=== PATIENT | female | born 1955 | race Caucasian/White ===

== ENCOUNTER 2018-06-15 17:33 | Observation (INO) ==
[2018-06-15 19:22] LABS: Baso # (Auto) 0.1 th/mm3 (0.0-0.2); Baso % (Auto) 0.7 % (0.0-2.0); Eos # (Auto) 0.2 th/mm3 (0.0-0.4); Eos % (Auto) 2.1 % (0.0-4.0); Hematocrit 42.2 % (35.0-46.0); Hemoglobin 14.8 gm/dL (11.6-15.3); Lymph # (Auto) 2.8 th/mm3 (1.0-4.8); Lymph % (Auto) 33.1 % (9.0-44.0); Mean Corpuscular HGB Conc 35.1 % (32.0-36.0); Mean Corpuscular Hemoglobin 31.9 pg (27.0-34.0); Mean Platelet Volume 8.1 fL (7.0-11.0); Mono # (Auto) 0.8 th/mm3 (0.0-0.9); Neut # (Auto) 4.7 th/mm3 (1.8-7.7); Neut % (Auto) 55.1 % (16.0-70.0); Platelet Count 310 th/mm3 (150-450); Red Blood Count 4.64 mil/mm3 (4.00-5.30); Red Cell Distribution Width 12.8 % (11.6-17.2); White Blood Count 8.5 th/mm3 (4.0-11.0)
--- NOTE | 2018-06-15 19:34 | ED ---
HPI General Chief Complaint: Neuro Symptoms/Deficit Stated Complaint: R arm and hand numb Time Seen by Provider: 06/15/18 18:10 Source: patient Mode of arrival: ambulatory Limitations: no limitations History of Present Illness HPI Narrative: since or any history of TIA/stroke previously. The patient takes a statin for hyperlipidemia however denies past medical history otherwise.The patient 62 years old and arrives to the ER due to numbness and weakness in the right hand which lasted about 10 seconds or so. Symptoms started spontaneously at rest. Patient reports no neuro deficits since. She reports a history of transient global amnesia several months prior and at that time complete workup was unremarkable patient reports multiple scans however is not sure for additional details. She reports a past history of hyperlipidemia and takes pravastatin for it however takes no other medication. She reports quite a bit of personal stress and anxiety related to politics over the past few weeks. Timing confirmed by: spouse Location: Reports right arm History of same: No Severity: mild Quality: Reports weak Relieving factors: none Context: Reports sudden onset On Anticoagulants: No Associated symptoms: Reports weakness Treatments Prior to Arrival: Reports none Related Data Home Medications Medication Instructions Recorded Confirmed pravastatin 20 mg PO DAILY 06/15/18 06/15/18 Allergies Allergy/AdvReac Type Severity Reaction Status Date / Time No Known Allergies Allergy Verified 06/15/18 18:25 Review of Systems ROS: all other systems reviewed are negative [facility] Medical History Medical History High cholesterol (Acute) Transient global amnesia (Acute) Social History Social History Substance History: No History of Abuse Second Hand Smoke Exposure: No Smoking Status: Never smoker How Often Do You Have a Drink Containing Alcohol: 2 to 3 times a week Recent Travel in [facility] within the Last 8 Weeks: No Recent Out of Country Travel within the Last 8 Weeks: No Exam Narrative Exam Narrative: GENERAL: 62-year-old female well-nourished well-developed no acute distress SKIN: Focused skin assessment warm/dry. HEAD: Atraumatic. Normocephalic. EYES: Pupils equal and round. No scleral icterus. No injection or drainage. ENT: No nasal bleeding or discharge. Mucous membranes pink and moist. NECK: Trachea midline. No JVD. CARDIOVASCULAR: Regular rate and rhythm. No murmur appreciated. RESPIRATORY: No accessory muscle use. Clear to auscultation. Breath sounds equal bilaterally. GASTROINTESTINAL: Abdomen soft, non-tender, nondistended. Hepatic and splenic margins not palpable. MUSCULOSKELETAL: No obvious deformities. No clubbing. No cyanosis. No edema. NEUROLOGICAL: Cranial nerves III through XII are normal. Motor function is normal x5. Speech memory mentation is normal. PSYCHIATRIC: Appropriate mood and affect; insight and judgment normal. Course Initial Documented Vital Signs Temperature 98.2 F 06/15/18 17:57 Pulse Rate 105 H 06/15/18 17:57 Respiratory Rate 20 06/15/18 17:57 Blood Pressure 156/77 H 06/15/18 17:57 Pulse Oximetry 96 06/15/18 17:57 Last Documented Vital Signs Temperature 98.2 F 06/15/18 17:57 Pulse Rate 94 H 06/15/18 18:04 Respiratory Rate 18 06/15/18 18:04 Blood Pressure 185/94 H 06/15/18 18:04 Pulse Oximetry 94 L 06/15/18 18:04 Medical Decision Making MDM Narrative Medical decision making narrative: The patient 62 years old and arrives with a history of weakness in the right hand which lasted about 10 seconds or so. Workup reveals no abnormality with the blood work and a head CT is normal as well. Urinalysis is consistent with a UTI. Bactrim ordered. Patient has a history of transient global amnesia however aside from hyperlipidemia no other significant past medical history. This case was discussed with hospitalist Dr. De La Paz who recommends TIA protocol admission. Pt amenable with plan. Medical Screen Exam Complete: Yes Emergency Medical Condition: Yes Differential Diagnosis Differential Diagnosis: TIA, stroke, electrolyte imbalance, paresthesia, radiculopathy Lab Data Lab results reviewed: Yes I reviewed the patient's lab results. Result diagrams: 06/15/18 19:05 06/15/18 19:05 Lab Results 06/15/18 06/15/18 06/15/18 Range/Units 19:05 19:05 19:10 WBC 8.5 (4.0-11.0) th/mm3 RBC 4.64 (4.00-5.30) mil/mm3 Hgb 14.8 (11.6-15.3) gm/dL Hct 42.2 (35.0-46.0) % MCV 91.0 (80.0-100.0) fL MCH 31.9 (27.0-34.0) pg MCHC 35.1 (32.0-36.0) % RDW 12.8 (11.6-17.2) % Plt Count 310 (150-450) th/mm3 MPV 8.1 (7.0-11.0) fL Neut % (Auto) 55.1 (16.0-70.0) % Lymph % (Auto) 33.1 (9.0-44.0) % Wayne % (Auto) 9.0 H (0.0-8.0) % Eos % (Auto) 2.1 (0.0-4.0) % Baso % (Auto) 0.7 (0.0-2.0) % Neut # (Auto) 4.7 (1.8-7.7) th/mm3 Lymph # (Auto) 2.8 (1.0-4.8) th/mm3 [place] # (Auto) 0.8 (0.0-0.9) th/mm3 Eos # (Auto) 0.2 (0.0-0.4) th/mm3 Baso # (Auto) 0.1 (0.0-0.2) th/mm3 WBC Differential . Differential Comment Auto diff final Sodium 139 (136-145) meq/L Potassium 4.9 (3.5-5.1) meq/L Chloride 105 (98-107) meq/L Carbon Dioxide 26.6 (21.0-32.0) meq/L Anion Gap 7 (5-15) meq/L BUN 16 (7-18) mg/dL Creatinine 0.96 (0.50-1.00) mg/dL Estimated GFR 59 L (>89) mL/min Random Glucose 104 (74-106) mg/dL Calcium 9.4 (8.5-10.1) mg/dL Total Bilirubin 0.3 (0.2-1.0) mg/dL AST 37 (15-37) U/L ALT 27 (10-53) U/L Alkaline Phosphatase 94 (45-117) U/L Total Protein 8.0 (6.4-8.2) g/dL Albumin 3.7 (3.4-5.0) g/dL Urine Color Yellow (Yellw/Straw) Urine Clarity Cloudy H (Clear) Urine pH 5.0 (5.0-8.5) Ur Specific [place] 1.021 (1.002-1.035) Urine Protein Negative (Neg-Trace) mg/dL Urine Glucose (UA) Negative (Negative) mg/dL Urine Ketones Negative (Negative) mg/dL Urine Occult Blood Small H (Negative) Urine Nitrate Negative (Negative) Urine Bilirubin Negative (Negative) Urine Urobilinogen Less than 2 (Less than 2) mg/dL Ur Leukocyte Esterase Moderate H (Negative) Urine RBC 1 (0-3) /hpf Urine WBC 26 H (0-5) /hpf Ur Squamous Epith Cells 11 (0-5) /hpf Urine Bacteria Rare H (None) /hpf Urine Mucus Few H (Occasional) /lpf Micro UA Comment Culture indicated Ur Microscopic Review Not Reportable Urine Culture Comments Culture indicated Imaging Data Radiologist's impression: Head CT 06/15/18 19:06 CONCLUSION: Negative noncontrast head CT. . Discharge Plan Discharge Disposition Patient Disposition: 30 Still Patient Physicians Team ED Provider: Adonis Diallo Rxs /Orders / Referrals /Forms Prescriptions: No Action pravastatin 20 mg Tablet 20 mg PO DAILY RF: 0 Status ED Status: With Doctor
[2018-06-15 19:35] LABS: Bacteria,Urine Rare /hpf; Bilirubin,Urine Negative (Negative); Clarity,Urine Cloudy (Clear); Color,Urine Yellow (Yellw/Straw); Glucose,Urine (UA) Negative (Negative); Leukocyte Esterase,Urine Moderate (Negative); Mucus,Urine Few /lpf (Occasional); Nitrite,Urine Negative (Negative); Specific Gravity,Urine 1.021 (1.002-1.035); Squamous Epithelial Cell,Urine 11 /hpf (0-5)
--- NOTE | 2018-06-15 19:35 | CT ---
EXAM DATE: 06/15/2018 7:10 PM EDT AGE/SEX: 62 years / Female INDICATIONS: Numbness and tingling to right hand. CLINICAL DATA: This is the patient's initial encounter. Patient reports that signs and symptoms have been present for 1 day and indicates a pain score of 0/10. MEDICAL/SURGICAL HISTORY: . Transient global amnesia. None. RADIATION DOSE: 33.89 CTDI (mGy) COMPARISON: No prior exams available for comparison. TECHNIQUE: CT of the head without contrast. Using automated exposure control and adjustment of the mA and/or kV according to patient size, radiation dose was kept as low as reasonably achievable to ob tain optimal diagnostic quality images. DICOM format image data is available electronically for revi ew and comparison. FINDINGS: Cerebrum: The ventricles are normal for age. No evidence of midline shift, mass lesion, hemorrhage or acute infarction. No extraaxial fluid collections are seen. Posterior Fossa: The cerebellum and brainstem are intact. The 4th ventricle is midline. The cerebe llopontine angle is unremarkable. Extracranial: The visualized portion of the orbits is intact. Skull: The calvaria is intact. No evidence of skull fracture. CONCLUSION: Negative noncontrast head CT. . Electronically signed by: Prashanth Murhpy MD 06/15/2018 7:34 PM EDT
[2018-06-15 19:44] LABS: Alanine Aminotransferase 27 U/L (10-53)
[2018-06-15 19:47] LABS: Alkaline Phosphatase 94 U/L (45-117)
[2018-06-15 20:01] LABS: Albumin 3.7 g/dL (3.4-5.0); Anion Gap 7 meq/L (5-15); Aspartate Aminotransferase 37 U/L (15-37); Blood Urea Nitrogen 16 mg/dL (7-18); Calcium 9.4 mg/dL (8.5-10.1); Carbon Dioxide 26.6 meq/L (21.0-32.0); Chloride 105 meq/L (98-107); Glomerular Filtration Rate 59 mL/min (>89); Glucose,Random 104 mg/dL (74-106); Potassium 4.9 meq/L (3.5-5.1); Sodium 139 meq/L (136-145)
[2018-06-15] MEDS ORDERED: Aspirin 325 MG Tablet PO ONE (20:12)
[2018-06-15] MEDS ORDERED: Bisacodyl 10 MG Supp RECTAL PRN (20:30)
[2018-06-15] MEDS ORDERED: Acetaminophen 325 MG Tablet PO PRN (20:30)
--- NOTE | 2018-06-15 20:32 | P.HPIM ---
History of Present Illness History of Present Illness: This is a 62-year-old female with a PMH of Transient Global Amnesia who presented to ER with complaints of RUE numbness/tingling starting at approx 12: 30pm this afternoon. States symptoms lasted 10-20 seconds then resolved spontaneously, had transient right hand weakness at that time, however now resolved. No slurred speech, lid lag, facial droop or lower extremity involvement. Denies h/o similar symptoms. Reports previous episode of TGA in November 2017 while on an airplane, states she had extensive eval w/ Neurologist, including CT/MRI and EEG w/ normal results. No other complaints. On arrival, BP 156/77, HR 105, O2 sat 96% on RA, Afebrile. CBC unremarkable. Chemistry unremarkable. UA positive for UTI. CT Head negative. States she takes ASA 81mg daily and Pravastatin 20mg daily. - Diagnosis (1) TIA (transient ischemic attack) (2) UTI (urinary tract infection) (3) HTN (hypertension) Review of Systems PAST FAMILY HISTORY: Reviewed. No h/o DM or CAD All other systems reviewed negative except as stated in HPI PMFSH - History History Provided By: Patient - Medical History Medical History: Medical History (Last Updated 06/15/18 @ 18:18 by Chrissy Hogue) High cholesterol Transient global amnesia - Tobacco History Second Hand Smoke Exposure: No Smoking Status: Never smoker - Alcohol History How Often Do You Have a Drink Containing Alcohol: 2 to 3 times a week - Substance Use History Substance History: No History of Abuse - Travel History Recent Travel in the [facility] Within the Last 8 Weeks: No Recent Travel Out of the Country Within the Last 8 Weeks: No - Immunization History Tetanus Immunization: Unsure Medications and Allergies Active Medications: Active Medications Sodium Chloride (Ns Flush) 2 ml IV.FLUSH PRN PRN PRN Reason: FLUSH AFTER USING IV ACCESS Allergies Allergy/AdvReac Type Severity Reaction Status Date / Time No Known Allergies Allergy Verified 06/15/18 18:25 Home Medications Medication Instructions Recorded Confirmed Type pravastatin 20 mg PO DAILY 06/15/18 06/15/18 History Exam Vital signs: Vital Signs 06/15/18 17:57 06/15/18 18:04 Temperature 98.2 F Pulse Rate 105 H 94 H Respiratory Rate 20 18 Blood Pressure 156/77 H 185/94 H Pulse Oximetry 96 94 L Intake & Output 10/12/18 10/12/18 10/13/18 06:59 18:59 06:59 Weight 73.936 kg Narrative: PE: GENERAL: Pleasant middle-aged white female in no acute distress. SKIN: Focused skin assessment warm and dry. HEENT: PERRLA, EOMI. No scleral icterus or conjunctival pallor. No lid lag or facial droop. CARDIOVASCULAR: Regular rate and rhythm. No obvious murmurs to auscultation. No chest tenderness to palpation. RESPIRATORY: No obvious rhonchi or wheezing. Clear to auscultation. Breath sounds equal bilaterally. GASTROINTESTINAL: Abdomen soft, non-tender, nondistended. BS normal. MUSCULOSKELETAL: Extremities without clubbing, cyanosis, or edema. No obvious deformities. NEUROLOGICAL: Awake, alert and oriented x4. No focal neurologic deficits. Moving both upper and lower extremities spontaneously. PSYCHIATRIC: Appropriate mood and affect. Insight and judgment normal. Results - Labs CBC & Chem 7: 06/15/18 19:05 06/15/18 19:05 Labs: Short CBC 06/15/18 Range/Units 19:05 WBC 8.5 (4.0-11.0) th/mm3 Hgb 14.8 (11.6-15.3) gm/dL Hct 42.2 (35.0-46.0) % Plt Count 310 (150-450) th/mm3 BMP 06/15/18 19:05 Sodium 139 Potassium 4.9 Chloride 105 Carbon Dioxide 26.6 BUN 16 Creatinine 0.96 Calcium 9.4 Liver Function 06/15/18 Range/Units 19:05 Total Bilirubin 0.3 (0.2-1.0) mg/dL AST 37 (15-37) U/L ALT 27 (10-53) U/L Alkaline Phosphatase 94 (45-117) U/L Albumin 3.7 (3.4-5.0) g/dL Urine 06/15/18 Range/Units 19:10 Urine Color Yellow (Yellw/Straw) Urine Clarity Cloudy H (Clear) Urine pH 5.0 (5.0-8.5) Ur Specific [place] 1.021 (1.002-1.035) Urine Protein Negative (Neg-Trace) mg/dL Urine Glucose (UA) Negative (Negative) mg/dL - Imaging Impressions Head CT 06/15/18 19:06 CONCLUSION: Negative noncontrast head CT. . Caprini VTE Risk Assessment Caprini VTE Risk Assessment: No/Low Risk (score <= 1) Caprini Risk Assessment Model: Point Value = 1 Point Value = 2 Point Value = 3 Point Value = 5 Age 41-60 Minor surgery BMI > 25 kg/m2 Swollen legs Varicose veins or History of unexplained or recurrent spontaneous Oral contraceptives or hormone replacement Sepsis (< 1 month) Serious lung disease, including pneumonia (< 1 month) Abnormal pulmonary function Acute myocardial infarction Congestive heart failure (< 1 month) History of inflammatory bowel disease Medical patient at bed rest Age 61-74 Arthroscopic surgery Major open surgery (> 45 min) Laparoscopic surgery (> 45 min) Malignancy Confined to bed (> 72 hours) Immobilizing plaster cast Central venous access Age >= 75 History of VTE Family history of VTE Factor V Leiden Prothrombin [id number] Lupus anticoagulant Anticardiolipin antibodies Elevated serum homocysteine Heparin-induced thrombocytopenia Other congenital or acquired thrombophilia Stroke (< 1 month) Elective arthroplasty Hip, pelvis, or leg fracture Acute spinal cord injury (< 1 month) Prophylaxis Regimen: Total Risk Factor Score Risk Level Prophylaxis Regimen 0-1 Low Early ambulation 2 Moderate Order ONE of the following: *Sequential Compression Device (SCD) *Heparin 5000 units SQ BID 3-4 Higher Order ONE of the following medications: *Heparin 5000 units SQ TID *Enoxaparin/Lovenox 40 mg SQ daily (WT < 150 kg, CrCl > 30 mL/min) *Enoxaparin/Lovenox 30 mg SQ daily (WT < 150 kg, CrCl > 10-29 mL/min) *Enoxaparin/Lovenox 30 mg SQ BID (WT < 150 kg, CrCl > 30 mL/min) AND/OR *Sequential Compression Device (SCD) 5 or more Highest Order ONE of the following medications: *Heparin 5000 units SQ TID (Preferred with Epidurals) *Enoxaparin/Lovenox 40 mg SQ daily (WT < 150 kg, CrCl > 30 mL/min) *Enoxaparin/Lovenox 30 mg SQ daily (WT < 150 kg, CrCl > 10-29 mL/min) *Enoxaparin/Lovenox 30 mg SQ BID (WT < 150 kg, CrCl > 30 mL/min) AND *Sequential Compression Device (SCD) Assessment and Plan - Assessment (1) TIA (transient ischemic attack) Code(s): G45.9 - Transient cerebral ischemic attack, unspecified Status: Acute (2) UTI (urinary tract infection) Code(s): N39.0 - Urinary tract infection, site not specified Status: Acute (3) HTN (hypertension) Code(s): I10 - Essential (primary) hypertension Status: Acute - Plan A/P: 1. TIA: episode of RUE numbness/tingling lasting approx 10-20 seconds, spontaneous resolution, no residual symptoms. CT Head w/ no acute findings. On ASA 81mg and Pravastatin daily, will increase ASA to 325mg. Admit for Observation, Neuro Checks. Check MRI to eval for underlying ischemia. Check Echo to eval for possible valvular abnormality/thrombosis. Consult Neurology for further evaluation. 2. UTI: U/a w/ UTI, s/p Bactrim in ER, will continue w/ IV Abx, follow up cultures, monitor I/O. 3. HTN: Uncontrolled. BP 180's while in ER, not on home medications, will allow for permissive hypertension at this time, antihypertensives as needed for BP >220. 4. DVT Prophylaxis: SCD/Teds 5. Social work for d/c planning as needed 6. Case discussed w/ ER physician at length, labs/records/imaging reviewed by me.
--- NOTE | 2018-06-15 21:29 | MR ---
EXAM DATE: 06/15/2018 8:42 PM EDT AGE/SEX: 62 years / Female INDICATIONS: TIA. Right sided weakness for one day. CLINICAL DATA: This is the patient's initial encounter. Patient reports that signs and symptoms have been present for 1 day and indicates a pain score of 4/10. MEDICAL/SURGICAL HISTORY: Hypercholesterolemia. Appendectomy. section. COMPARISON: [facility] [place], CT HEAD W/O CONTRAST, 06/15/2018. . TECHNIQUE: Multiplanar, multisequence examination of the brain was performed without contrast. FINDINGS: Cerebrum: The ventricles are normal for age. No evidence of midline shift, mass lesion, hemorrhage or acute infarction. No extraaxial fluid collections are seen. The pituitary gland and suprasellar cistern are normal in configuration. White Matter: There are multiple small foci of increased signal seen throughout the cerebral white m atter on the FLAIR images. Posterior Fossa: The cerebellum and brainstem are intact. The 4th ventricle is midline. The cerebel lopontine angle is unremarkable. The cerebellar tonsils are normal in position. Diffusion Imaging: No focal areas of restricted diffusion are seen. No evidence of acute infarction . Extracranial: The visualized portions of the orbits and paranasal sinuses are unremarkable. CONCLUSION: 1. No acute abnormality seen. 2. Multiple small foci of signal abnormality within the cerebral white matter. These are nonspecific . They could be from small vessel ischemic change versus other demyelinating conditions. Electronically signed by: Prashanth Murphy MD 06/15/2018 9:28 PM EDT
[2018-06-15] MEDS: Senna/Docusate Sodium 8.6/50 MG Tablet PO SCH (21:32)
[2018-06-15] MEDS: Sod Chloride 0.9% Inj 1,000 ML IV.CONT SCH (22:00)
--- NOTE | 2018-06-15 22:19 | MR ---
EXAM DATE: 06/15/2018 10:08 PM EDT AGE/SEX: 62 years / Female INDICATIONS: TIA. Right arm numbness that started today. CLINICAL DATA: This is the patient's initial encounter. Patient reports that signs and symptoms have been present for 1 day and indicates a pain score of 4/10. MEDICAL/SURGICAL HISTORY: Hypercholesterolemia. Appendectomy. section. COMPARISON: [facility] [place]/O CONTRAST, 06/15/2018. . TECHNIQUE: 3D [id number] MRA was performed. Source images, multiplanar STS MIP, and 3D volum e MIP reconstructions were reviewed. FINDINGS: There is excellent visualization of the major intracranial arteries out to the second-order branch ve ssels. There is no evidence for aneurysm, vessel truncation or stenosis, and no evidence for vascula r malformation. CONCLUSION: Negative MRA. Electronically signed by: Prashanth Murphy MD 06/15/2018 10:18 PM EDT
[2018-06-16 03:31] LABS: Baso # (Auto) 0.1 th/mm3 (0.0-0.2); Baso % (Auto) 0.9 % (0.0-2.0); Eos # (Auto) 0.2 th/mm3 (0.0-0.4); Eos % (Auto) 2.5 % (0.0-4.0); Hematocrit 39.2 % (35.0-46.0); Hemoglobin 13.3 gm/dL (11.6-15.3); Lymph # (Auto) 3.2 th/mm3 (1.0-4.8); Lymph % (Auto) 35.5 % (9.0-44.0); Mean Corpuscular HGB Conc 33.9 % (32.0-36.0); Mean Corpuscular Hemoglobin 30.6 pg (27.0-34.0); Mean Corpuscular Volume 90.3 fL (80.0-100.0); Mean Platelet Volume 8.1 fL (7.0-11.0); Mono # (Auto) 0.9 th/mm3 (0.0-0.9); Mono % (Auto) 10.4 % (0.0-8.0); Neut # (Auto) 4.6 th/mm3 (1.8-7.7); Neut % (Auto) 50.7 % (16.0-70.0); Platelet Count 298 th/mm3 (150-450); Red Blood Count 4.34 mil/mm3 (4.00-5.30); Red Cell Distribution Width 13.1 % (11.6-17.2)
[2018-06-16 04:15] LABS: Alanine Aminotransferase 19 U/L (10-53); Albumin 3.1 g/dL (3.4-5.0); Alkaline Phosphatase 83 U/L (45-117); Anion Gap 11 meq/L (5-15); Aspartate Aminotransferase 20 U/L (15-37); Blood Urea Nitrogen 17 mg/dL (7-18); Carbon Dioxide 26.4 meq/L (21.0-32.0); Chloride 107 meq/L (98-107); Glomerular Filtration Rate 53 mL/min (>89); Glucose,Random 96 mg/dL (74-106); Sodium 144 meq/L (136-145); Total Protein 6.7 g/dL (6.4-8.2)
[2018-06-16] MEDS: Sod Chloride 0.9% Inj 1,000 ML IV.CONT SCH ×2 (06:16→16:51)
[2018-06-16] MEDS: Senna/Docusate Sodium 8.6/50 MG Tablet PO SCH (08:51)
--- NOTE | 2018-06-16 09:36 | P.PNIM ---
Subjective Interval history: f/u; TIA in no acute distress. no new complaints. the numbness of the right arm has resolved. she says that " I'm back to normal'. Physical Exam Vital signs: Vital Signs 06/15/18 17:57 06/15/18 18:04 06/15/18 20:47 Temperature 98.2 F Pulse Rate 105 H 94 H 93 H Respiratory Rate 20 18 Blood Pressure 156/77 H 185/94 H Pulse Oximetry 96 94 L 06/15/18 21:34 06/15/18 22:16 06/16/18 03:27 Temperature 97.9 F 98.0 F Pulse Rate 91 H 91 H 84 Respiratory Rate 17 18 17 Blood Pressure 152/80 H 162/81 H 122/69 Pulse Oximetry 97 96 95 06/16/18 07:50 Temperature 97.9 F Pulse Rate 85 Respiratory Rate 16 Blood Pressure 141/86 H Pulse Oximetry 95 Intake & Output 06/15/18 06/16/18 06/16/18 18:59 06:59 18:59 Intake Total 1000 / 1000 Balance 1000 / 1000 Weight 73.936 kg Intake: IV 1000 / 1000 NS Inj 1,000 ML @ 100 mls/hr IV 1000 / 1000 .CONT .Q10H YANELY Rx#:[id number] Other: # Voids 2 - Constitutional no acute distress - Routine Respiratory Exam Present: CTA bilaterally - Routine Cardiovascular Exam Present: RRR - Routine Abdominal Exam Present: soft - Routine Extremities Exam Comments: no pedal edema. - Routine Neurological Exam Present: alert, oriented X3 Results - Labs CBC & Chem 7: 06/16/18 03:18 06/16/18 03:18 Laboratory Results - last 24 hr 06/15/18 06/15/18 06/15/18 19:05 19:05 19:10 WBC 8.5 RBC 4.64 Hgb 14.8 Hct 42.2 MCV 91.0 MCH 31.9 MCHC 35.1 RDW 12.8 Plt Count 310 MPV 8.1 Neut % (Auto) 55.1 Lymph % (Auto) 33.1 Jay % (Auto) 9.0 H Eos % (Auto) 2.1 Baso % (Auto) 0.7 Neut # (Auto) 4.7 Lymph # (Auto) 2.8 Jay # (Auto) 0.8 Eos # (Auto) 0.2 Baso # (Auto) 0.1 WBC Differential . Differential Comment Auto diff final Sodium 139 Potassium 4.9 Chloride 105 Carbon Dioxide 26.6 Anion Gap 7 BUN 16 Creatinine 0.96 Estimated GFR 59 L Random Glucose 104 Calcium 9.4 Total Bilirubin 0.3 AST 37 ALT 27 Alkaline Phosphatase 94 Troponin I Total Protein 8.0 Albumin 3.7 Urine Color Yellow Urine Clarity Cloudy H Urine pH 5.0 Ur Specific [place] 1.021 Urine Protein Negative Urine Glucose (UA) Negative Urine Ketones Negative Urine Occult Blood Small H Urine Nitrate Negative Urine Bilirubin Negative Urine Urobilinogen Less than 2 Ur Leukocyte Esterase Moderate H Urine RBC 1 Urine WBC 26 H Ur Squamous Epith Cells 11 Urine Bacteria Rare H Urine Mucus Few H Micro UA Comment Culture indicated Ur Microscopic Review Not Reportable Urine Culture Comments Culture indicated 06/16/18 06/16/18 03:18 03:18 WBC 9.0 RBC 4.34 Hgb 13.3 Hct 39.2 MCV 90.3 MCH 30.6 MCHC 33.9 RDW 13.1 Plt Count 298 MPV 8.1 Neut % (Auto) 50.7 Lymph % (Auto) 35.5 Jay % (Auto) 10.4 H Eos % (Auto) 2.5 Baso % (Auto) 0.9 Neut # (Auto) 4.6 Lymph # (Auto) 3.2 Jay # (Auto) 0.9 Eos # (Auto) 0.2 Baso # (Auto) 0.1 WBC Differential . Differential Comment Auto diff final Sodium 144 Potassium 4.0 D Chloride 107 Carbon Dioxide 26.4 Anion Gap 11 BUN 17 Creatinine 1.05 H Estimated GFR 53 L Random Glucose 96 Calcium 8.0 L D Total Bilirubin 0.3 AST 20 ALT 19 Alkaline Phosphatase 83 Troponin I Less than 0.02 L Total Protein 6.7 D Albumin 3.1 L D Urine Color Urine Clarity Urine pH Ur Specific [place] Urine Protein Urine Glucose (UA) Urine Ketones Urine Occult Blood Urine Nitrate Urine Bilirubin Urine Urobilinogen Ur Leukocyte Esterase Urine RBC Urine WBC Ur Squamous Epith Cells Urine Bacteria Urine Mucus Micro UA Comment Ur Microscopic Review Urine Culture Comments - Imaging Impressions Head MRI 06/15/18 00:00 CONCLUSION: 1. No acute abnormality seen. 2. Multiple small foci of signal abnormality within the cerebral white matter. These are nonspecific. They could be from small vessel ischemic change versus other demyelinating conditions. Head CT 06/15/18 19:06 CONCLUSION: Negative noncontrast head CT. . Head MRA 06/15/18 22:06 CONCLUSION: Negative MRA. Assessment and Plan - Assessment (1) TIA (transient ischemic attack) Code(s): G45.9 - Transient cerebral ischemic attack, unspecified Status: Acute (2) UTI (urinary tract infection) Code(s): N39.0 - Urinary tract infection, site not specified Status: Acute (3) HTN (hypertension) Code(s): I10 - Essential (primary) hypertension Status: Acute - Plan 1. TIA: episode of RUE numbness/tingling lasting approx 10-20 seconds, spontaneous resolution, no residual symptoms. CT Head w/ no acute findings. Brain MRI with No acute abnormality /with Multiple small foci of signal abnormality within the cerebral white matter. These are nonspecific. They could be from small vessel ischemic change versus other demyelinating conditions. MRA brain negative. echo ordered- will check carotid doppler- neurology consulted. continue aspirin and statin. 2. UTI: U/a w/ UTI, s/p Bactrim in ER, will continue w/ IV Abx, follow up cultures, monitor I/O. 3. elevated BP with no history of hypertension; now has improved; vasotec prn for now- continue to monitor BP. 4. DVT Prophylaxis: SCD/Teds Discharge Planning: when w/u is completed and cleared by neurology.
--- NOTE | 2018-06-16 11:26 | US ---
EXAM DATE: 06/16/2018 12:00 AM EDT AGE/SEX: 62 years / Female INDICATIONS: Transient ischemic attack. CLINICAL DATA: This is the patient's initial encounter. Patient reports that signs and symptoms have been present for 1 day and indicates a pain score of 0/10. MEDICAL/SURGICAL HISTORY: . High cholesterol. Transient global amnesia. None. COMPARISON: No prior exams available for comparison. VELOCITY PARAMETERS: ICA/CCA Ratio: Right 1.2 , Left 1.2 ICA: Right 94 cm/sec, Left 105 cm/sec CCA: Right 80 cm/sec, Left 88 cm/sec ECA: Right 86 cm/sec, Left 165 cm/sec Vertebral: Right 73 cm/sec antegrade, Left 42 cm/sec antegrade FINDINGS: Right Carotid: Mild arteriosclerotic plaque is visualized.The waveforms are within normal limits. Left Carotid: Moderate arteriosclerotic plaque is visualized. The waveforms are within normal limits . Other: None. CONCLUSION: 1. Right Internal Carotid Artery: No significant stenosis. 2. Left Internal Carotid Artery: Moderate atherosclerosis identified at the carotid bulb without papa dence of significant stenosis. Electronically signed by: Radha Champagne MD 06/16/2018 11:25 AM EDT
--- NOTE | 2018-06-16 13:01 | MB ---
cc: Sydnee Barbosa MD DATE: 06/16/2018 REASON FOR CONSULTATION: TIA. HISTORY OF PRESENT ILLNESS: This is a 62-year-old woman with a history of transient global amnesia comes in with right upper extremity numbness and tingling started about 12:30 p.m. yesterday afternoon, lasting for less than a minute, resolved spontaneously. 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 She did not have any weakness. No speech issues. No facial droop. No leg weakness. The patient is back to baseline, offers no new complaints. She has a history of hypertension as well as transient global amnesia. FAMILY HISTORY: Noncontributory. SOCIAL HISTORY: . Drinks 2 to 3 times a week. No tobacco. MEDICATIONS: Please refer to the MAR. PHYSICAL EXAMINATION: VITAL SIGNS: Temperature 97.5, pulse 92, respiratory rate 16, blood pressure 142/76. NECK: Supple. No appreciable bruits. HEART: Regular. NEUROLOGIC: She is awake, alert, oriented, fluent. Pupils reactive. Visual rawls full. Face symmetrical. Tongue midline. Motor: No drift or leg lag. Sensory is normal. Cerebellar is normal. Toes are downgoing. DTRs are normal. Gait deferred. DIAGNOSTIC STUDIES: MRI brain, no acute pathology. MRA [place], no intracranial disease. CBC unremarkable. Chemistries: GFR 53. Urine, moderate leukocyte esterase. Culture pending. IMPRESSION: 1. Urinary tract infection. 2. Possible transient ischemic attack. Recommend getting an echo as well as a lipid panel, increase her to a full dose aspirin if there is no contraindication. Outpatient echo. If stable from a neurologic perspective can be discharged after echo completed. As far as reports, reports are not in yet. Continue current recommendations, discharge planning. MD MEAGHAN Chowdhury/mabel , 12:26 PM , 12:32 PM
--- NOTE | 2018-06-16 13:19 | ECG ---
Date Performed: 06/15/2018 Time Performed: 19:32:59 PTAGE: 62 years EKG: Sinus rhythm NORMAL ECG NO PREVIOUS TRACING DOCTOR: Radu Oliveira Interpretating Date/Time 06/16/2018 13:18:01
[2018-06-16 15:28] VITALS: BP 127/82; PULSE 86; RESP 20; TEMP 98.2; O2SAT 93
--- NOTE | 2018-06-16 16:01 | P.PNADD ---
Addendum to Inpatient Note Reason for Addendum: Additional Documentation (neurology evaluation appreciated ; echo done- patient denies any symptoms and wants to go home. she was advised to have a f/u with her pcp regarding the echo result since she doesn't want to wait till echo is resulted. she will be started on aspirin and oral antibiotic- UC to be followed up as outpatient.)
[2018-06-16 16:39] LABS: Chol/HDL Ratio 4.16 Ratio; HDL Cholesterol 39.6 mg/dL (40.0-60.0)
--- NOTE | 2018-06-16 17:49 | ECHRPT ---
Indication: CVA/TIA CONCLUSIONS Technically difficult study The left ventricular systolic function is grossly normal on limited imaging. Trace mitral valve regurgitation. There is trace tricuspid valve regurgitation. BP: / HR: Rhythm: Sinus MEASUREMENTS (Male / Female) Normal Values Technical Quality:Technically difficult study 2D ECHO LV Diastolic Diameter PLAX 4.6 cm 4.2 - 5.9 / 3.9 - 5.3 cm LV Systolic Diameter PLAX 3.4 cm IVS Diastolic Thickness 1.0 cm 0.6 - 1.0 / 0.6 - 0.9 cm LVPW Diastolic Thickness 1.0 cm 0.6 - 1.0 / 0.6 - 0.9 cm LV Relative Wall Thickness 0.4 LVOT Diameter 2.0 cm M-MODE Aortic Root Diameter MM 2.5 cm LA Systolic Diameter MM 3.0 cm LA Ao Ratio MM 1.2 AV Cusp Separation MM 1.6 cm DOPPLER AV Peak Velocity 160.0 cm/s AV Peak Gradient 10.2 mmHg LVOT Peak Velocity 107.0 cm/s LVOT Peak Gradient 4.6 mmHg AV Area Cont Eq pk 2.0 cm Mitral E Point Velocity 79.5 cm/s Mitral A Point Velocity 108.0 cm/s Mitral E to A Ratio 0.7 LV E' Lateral Velocity 10.4 cm/s Mitral E to LV E' Lateral Ratio 7.6 LV E' Septal Velocity 9.9 cm/s Mitral E to LV E' Septal Ratio 8.0 PV Peak Velocity 168.0 cm/s PV Peak Gradient 11.3 mmHg FINDINGS LEFT VENTRICLE The left ventricle is not well visualized. The left ventricular systolic function is grossly normal on limited imaging. RIGHT VENTRICLE The right ventricle was not well visualized. LEFT ATRIUM The left atrium was not well visualized. RIGHT ATRIUM The right atrium is not well visualized. ATRIAL SEPTUM The interatrial septum not well visualized. AORTA The aortic root and proximal ascending aorta are not well visualized. MITRAL VALVE Grossly normal on limited imaging Trace mitral valve regurgitation. AORTIC VALVE The aortic valve is not well visualized. TRICUSPID VALVE The tricuspid valve is not well visualized. There is trace tricuspid valve regurgitation. PULMONARY VALVE The pulmonary valve is not well visualized. Bakari Diallo DO (Electronically Signed) Final Date:16 June 2018 17:48
== END 2018-06-16 18:22 | disposition home or self-care (01) ==
LOC: NEDA 17:33 → NEPE 17:33 → NEPGCP 22:14
PROVIDERS: ADMIT Internal Medicine; ATTEND Internal Medicine
DX: F41.9 Anxiety disorder, unspecified; Z86.73 Personal history of transient ischemic attack (TIA), and cerebral infarction without residual deficits; I10 Essential (primary) hypertension; N39.0 Urinary tract infection, site not specified; E78.5 Hyperlipidemia, unspecified; G45.9 Transient cerebral ischemic attack, unspecified; E78.00 Pure hypercholesterolemia, unspecified; Z79.82 Long term (current) use of aspirin